=== PATIENT | female | born 1990 | race Two or more races ===

== ENCOUNTER 2025-04-27 13:30 | Outpatient (RCR) | payer MEDICAID, SELFPAY ==
--- NOTE | 2025-04-10 10:37 | PTNOTE_ITS ---
PT OP Initial Eval Patient Information Outpatient Physical Therapy Treatment Date: 04/10/25 Visit Reasons: RIGHT ELBOW PAIN Medical Diagnosis: M25.521 M77.11 Treatment Dx #1: R elbow pain Treatment Dx #2: Decreased consulting services associate strength Start of Care: 04/10/25 Date of Onset: 2022 Smoking Status Smoking Status: Never smoker Initial Assessment Subjective: Pt is 34 yr old R hand dominant female who reports R elbow pain x2 yrs and she points to the medial and lateral aspects of the elbow. Increased pain with HH chores, opening bottles and gripping things. She is not working at this time. Pt is wearing a strap on the elbow which helps with pain. PMH: Carpal tunnel release 2022, 2016 Imaging: Xray of R elbow Significant osteopenia,[place] medial humeral con dyle and to a lesser extent lateral humeral, condyle consistent with epicondylitis Pt goal: to get rid of the pain Objective: Driveway Attendant strength: R: 18 lbs, L: 35 lbs Wrist AROM:? Strength: ?Flexion: 85 deg? 4-/5 with elbow pain Extension: 65 deg? 4-/5 with pain Elbow AROM: Flexion: full Extension: full Special testing: Kruse test: positive Cozen's: positive TTP: moderate common extensor tendon at lateral elbow Assessment: Pt presentation consistent with referring Dx of lateral epicondylitis. Pt ? has pain with resisted wrist extension, extensor tendon is TTP and pt has ? decreased consulting services associate strength on R. Pt has positive testing for lateral ? epicondylitis. Eval followed by HEP with materials. [facility] Goals 1. Ind with HEP ? 2. Improved consulting services associate strength on R to 30 lbs ? 3. Pt will open jars with <=1/10 pain in R elbow ? 4. Improved wrist strength to 4+/5 without pain ? 5. Decreased TTP from mod to min of R lateral elbow Treatment Plan 1. Manual therapy ? 2. Therex ? 3. Modalities as indicated, moist heat, ice, estim Frequency and Duration: 2x a week for 6 weeks Certification Dates: 04/10/25 to 07/09/25 Procedure Charges OP PT Eval Mod Complex 30 minutes: Yes
--- NOTE | 2025-04-17 09:59 | PT.ODAYNRPT ---
PT Outpatient Daily Note OP Daily Note Outpatient Physical Therapy Treatment Date: 04/17/25 Visit Reasons: RIGHT ELBOW PAIN Subjective: Same as time of evaluation. Doing HEP with some elbow soreness Objective: See F/S for therex MT: STM lateral elbow with [place]aston x7' Assessment: Min/moderate TTP of lateral elbow with manual therapy. Plan: Continue per POC Length of Time (minutes) of Treatment: 30 Minutes Procedure Charges Therapeutic Exercise 30 minutes: Yes
--- NOTE | 2025-04-20 10:37 | PT.ODAYNRPT ---
PT Outpatient Daily Note OP Daily Note Outpatient Physical Therapy Treatment Date: 04/20/25 Visit Reasons: RIGHT ELBOW PAIN Subjective: Pt reports R elbow pain and discomfort. Objective: Please see flow sheet for ther ex list. Assessment: Interventions completed with minimal pain, Plan: Assess response to treatment. Length of Time (minutes) of Treatment: 30 Minutes Procedure Charges Therapeutic Exercise 30 minutes: Yes
--- NOTE | 2025-04-25 11:33 | PT.ODAYNRPT ---
PT Outpatient Daily Note OP Daily Note Outpatient Physical Therapy Treatment Date: 04/25/25 Visit Reasons: RIGHT ELBOW PAIN Subjective: Pt reports the cold ice massage seemed to help after last PT session. Objective: Please see flow sheet for ther ex list. Assessment: Pt demonstrates decrease c/o pain with interventions today. Plan: Continue with poC. Length of Time (minutes) of Treatment: 30 Minutes Procedure Charges Therapeutic Exercise 30 minutes: Yes
--- NOTE | 2025-04-27 15:57 | PT.ODAYNRPT ---
PT Outpatient Daily Note OP Daily Note Outpatient Physical Therapy Treatment Date: 04/27/25 Visit Reasons: RIGHT ELBOW PAIN Subjective: Doing HEP with some elbow soreness Objective: See F/S for therex MT: STM lateral elbow with [place]aston x7' Assessment: Min/moderate TTP of lateral elbow with manual therapy. Plan: Continue per POC Length of Time (minutes) of Treatment: 30 Minutes Procedure Charges Therapeutic Exercise 30 minutes: Yes
== END 2025-04-28 23:59 | disposition home or self-care (01) ==
LOC: CPTX 13:30
PROVIDERS: PCP Nurse Practitioner Gerontology; Referring Provider Nurse Practitioner Gerontology; Visit Provider Nurse Practitioner Gerontology
DX: M25.521 Pain in right elbow (principal)
CPT/HCPCS: 97110; 97162

== ENCOUNTER 2025-05-23 10:00 | Outpatient (RCR) | payer MEDICAID, SELFPAY ==
--- NOTE | 2025-05-02 12:57 | PT.ODAYNRPT ---
PT Outpatient Daily Note OP Daily Note Outpatient Physical Therapy Treatment Date: 05/02/25 Visit Reasons: right elbow pain Subjective: Pt reports R elbow is doing better, it is not as sore and painful Pt shared that in the mornings she wakes up with her hands swelling. Objective: Please see flow sheet for ther ex list. Assessment: Progression of interventions completed with minimal pain. Plan: Continue with POC. Length of Time (minutes) of Treatment: 30 Minutes Procedure Charges Therapeutic Exercise 30 minutes: Yes
--- NOTE | 2025-05-23 11:08 | PT.ODAYNRPT ---
PT Outpatient Daily Note OP Daily Note Outpatient Physical Therapy Treatment Date: 05/23/25 Visit Reasons: right elbow pain Subjective: Pt reports elbow is feeling better, continues to do HEP and apply ice at home. Objective: Please see flow sheet for ther ex list. Assessment: Pt presents in clinic with decrease c/o pain resulting in improved tolerance with interventions. Plan: Continue with POC. Length of Time (minutes) of Treatment: 30 Minutes Procedure Charges Therapeutic Exercise 30 minutes: Yes
== END 2025-05-28 23:59 | disposition home or self-care (01) ==
LOC: CPTX 10:00
PROVIDERS: PCP Nurse Practitioner Gerontology; Referring Provider Nurse Practitioner Gerontology; Visit Provider Nurse Practitioner Gerontology
DX: M25.521 Pain in right elbow (principal)
CPT/HCPCS: 97110

== ENCOUNTER 2025-06-13 09:00 | Outpatient (RCR) | payer MEDICAID, SELFPAY ==
--- NOTE | 2025-05-31 10:33 | PT.ODAYNRPT ---
PT Outpatient Daily Note OP Daily Note Outpatient Physical Therapy Treatment Date: 05/31/25 Visit Reasons: RT elbow pain Subjective: Pt reports R elbow is doing better, continues to use ice at home. Objective: Please see flow sheet for ther ex list. Assessment: No complaints with interventions completed indicating progress. To progress interventions next session. Plan: Progress strengthening. Length of Time (minutes) of Treatment: 30 Minutes Procedure Charges Therapeutic Exercise 30 minutes: Yes
--- NOTE | 2025-06-05 09:57 | PT.ODAYNRPT ---
PT Outpatient Daily Note OP Daily Note Outpatient Physical Therapy Treatment Date: 06/05/25 Visit Reasons: RT elbow pain Subjective: Doing HEP with less elbow soreness but difficulty opening jars/bottles Objective: See F/S for therex MT: STM lateral elbow with [place]aston x7' Assessment: Min/moderate TTP of lateral elbow with manual therapy. Plan: Continue per POC Length of Time (minutes) of Treatment: 30 Minutes Procedure Charges Therapeutic Exercise 30 minutes: Yes
--- NOTE | 2025-06-08 10:43 | PT.ODAYNRPT ---
PT Outpatient Daily Note OP Daily Note Outpatient Physical Therapy Treatment Date: 06/08/25 Visit Reasons: RT elbow pain Subjective: Doing HEP with less elbow soreness but difficulty opening jars/bottles Objective: See F/S for therex MT: STM lateral elbow with [place]aston x7' Assessment: Min/moderate TTP of lateral elbow with manual therapy. Plan: Continue per POC Length of Time (minutes) of Treatment: 30 Minutes Procedure Charges Therapeutic Exercise 30 minutes: Yes
--- NOTE | 2025-06-13 09:59 | PTNOTE_ITS ---
PT Outpatient Daily Note OP Daily Note Outpatient Physical Therapy Treatment Date: 06/13/25 Visit Reasons: RT elbow pain Subjective: Pt reports progress with elbow symptoms but still notices technical solution architect strength is weak. Pt mentioned she has a has time opening plastic bottle caps. Objective: See flow sheet for ther ex lsit. Assessment: Focus on technical solution architect and pinch strength to work toward strength so pt can open jars and bottles with more ease. Plan: Continue per POC Length of Time (minutes) of Treatment: 30 Minutes Procedure Charges Therapeutic Exercise 30 minutes: Yes
== END 2025-06-28 23:59 | disposition home or self-care (01) ==
LOC: CPTX 09:00
PROVIDERS: PCP Nurse Practitioner Gerontology; Referring Provider Nurse Practitioner Gerontology; Visit Provider Nurse Practitioner Gerontology
DX: M25.521 Pain in right elbow (principal); M77.11 Lateral epicondylitis, right elbow
CPT/HCPCS: 97110